=== PATIENT | male | born 1980 | race Hispanic/Latino ===

== ENCOUNTER 2024-09-23 10:24 | Emergency (ER) | payer SELFPAY ==
[2024-09-23 10:36] VITALS: BP 150/95; PULSE 110; RESP 16; TEMP 37.4; O2SAT 99
--- NOTE | 2024-09-23 10:53 | ED_ITS ---
HPI - Skin/Abscess/Foreign Bdy General Chief complaint: Extremity Injury, Lower Stated complaint: right knee red,swollen,painful Time Seen by Provider: 09/23/24 10:45 Source: patient Mode of arrival: ambulatory Limitations: no limitations History of Present Illness HPI narrative: Ruslan is a 44-year-old male patient presenting to the clinic today with complaints of right knee red, swollen, and painful. He reports symptoms started on Thursday with some right knee pain and have gradually gotten worse. He has felt feverish. Denies any known injury to the right knee. Heart rates 110 with a temperature of 37.4?. Blood pressure is 150/95. Related Data Home Medications Medication Instructions Recorded Confirmed No Home Medications 09/23/24 09/23/24 Allergies Allergy/AdvReac Type Severity Reaction Status Date / Time No Known Allergies Allergy Unverified 01/06/17 18:46 Review of Systems Review of Systems: Pertinent positives per HPI. Patient denies any rash, headache, visual changes, dizziness, cough, runny nose, sore throat, shortness of breath, chest pain, palpitations, nausea, vomiting, diarrhea, constipation, abdominal pain, or any urinary issues. PMFSH Comments At the time of my signature, I reviewed and agree with the nursing past medical, surgical, social, and family history. There is no relevant family history pertinent to the patient complaint. Exam Narrative: General: Well-developed, well nourished, in no apparent distress Head: Normocephalic, atraumatic. Cardio: Regular rate and rhythm, s1 and s2 normal, no murmur appreciated. Resp: Clear to auscultation bilaterally, no rhonchi, rales, wheezing or rubs. Integumentary: [place], warm, and dry, right knee swelling with erythema and tenderness with what appears to be an infected hair sore-redness and swelling extending to the medial right tib-fib and to the medial thigh with lymphatic streaking. Course Course Emergency Course: Portions of this record may have been created with voice recognition software. Level of Care: Express Care Visit Vital Signs Vital signs: Vital Signs Temperature 37.4 C 09/23/24 10:36 Pulse Rate 110 H 09/23/24 10:36 Respiratory Rate 16 09/23/24 10:36 Blood Pressure 150/95 H 09/23/24 10:36 Pulse Oximetry 99 09/23/24 10:36 Oxygen Delivery Room Air 09/23/24 10:36 Temperature 37.4 C 09/23/24 10:36 Pulse Rate 110 H 09/23/24 10:36 Respiratory Rate 16 09/23/24 10:36 Blood Pressure 150/95 H 09/23/24 10:36 Pulse Oximetry 99 09/23/24 10:36 Oxygen Delivery Room Air 09/23/24 10:36 Vital signs reviewed Transfer Transfered to: [facility] Transportation: Other (private car) Transfer rationale: Cellulitis to the right knee with lymphatic streaking-rule out septic joint Accepting physician: Dr. Hernandez Transfer comments: Private car MDM - Skin/Abscess/Foreign Bdy MDM Narrative Medical decision making narrative: At the time of visit patient is resting on the exam table. Plan: Recommend transfer to the ER for right knee cellulitis will rule out septic joint. Patient like to be transfer to [facility]. Spoke with Dr. Hernandez at [facility] and report was given for continuity of care and she accepts patient for transfer. Differential Diagnosis Differential diagnosis: Likely abscess of skin or subcutaneous tissue, cellulitis, insect bites, impetigo and contact dermatitis Discharge Plan Discharge Clinical Impression: Cellulitis of knee, right Cellulitis Qualifiers: Site of cellulitis: extremity Site of cellulitis of extremity: lower extremity Laterality: right Qualified Code(s): L03.115 - Cellulitis of right lower limb Patient Disposition: Acute Care Hospital Condition: Stable Instructions: Antibiotic Form Follow-up/Referrals: Nahomy,BC Rosales [Primary Care Provider] - Time of Disposition: 10:55 Quality NIHSS Nursing Documentation ED NIHSS nursing documentation: reviewed/agree
== END 2024-09-23 11:02 | disposition short-term general hospital (02) ==
PROVIDERS: Emergency Provider Nurse Practitioner Family; PCP Physician Assistant
DX: L03.115 Cellulitis of right lower limb (principal)
CPT/HCPCS: 99202; G0463

== ENCOUNTER 2025-01-24 08:05 | Emergency (ER) | payer SELFPAY ==
--- NOTE | 2025-01-24 08:08 | ED.URI ---
HPI - URI/Sore Throat General Chief Complaint: Upper Respiratory Infection Stated Complaint: bodyaches,fever,cough,chills Time Seen by Provider: 01/24/25 08:12 Source: patient, RN notes reviewed and old records reviewed Mode of arrival: ambulatory Limitations: no limitations History of Present Illness HPI Narrative: 34-year-old male presents to the [facility] with body aches, fever, chills symptoms started Thursday, 2 days ago Has taken ibuprofen Tamiflu NyQuil. Took ibuprofen approximately 3 hours ago. 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 Onset (ago): day(s) (2) Treatments prior to arrival: ibuprofen and cold medicine Related Data Home Medications ?Medication ?Instructions ?Recorded ?Confirmed ?Last Taken ?Type No Home Medications 09/23/24 09/23/24 Unknown History No Home Medications 09/23/24 01/24/25 Unknown History Allergies Allergy/AdvReac Type Severity Reaction Status Date / Time vancomycin Allergy Hives Verified 01/24/25 08:12 Review of Systems Review of Systems: All systems reviewed & are unremarkable except as noted in HPI and below Constitutional: Constitutional: Reports as per HPI, Reports body ache(s), Reports chills, Reports fatigue and Reports fever(s) ENT: Reports system reviewed and no additional complaints, except as documented Cardiovascular: Cardiovascular: Reports no additional cardiovascular complaints, Denies chest pain and Denies dyspnea Respiratory: Respiratory: Reports as per HPI, Denies chest congestion, Reports cough and Denies dyspnea Musculoskeletal: Musculoskeletal: Reports no additional musculoskeletal complaints Integumentary/Breasts: Skin/Breast: Reports system reviewed and no additional complaints, except as docu PMFSH Past Medical History Medical History No active medical problems Social History Social History Smoking status: Current every day smoker Alcohol intake: unknown Substance use: never Do You Feel Safe in your Home?: Yes Lack of Transportation: No Lack of Food: Never True Current Housing: I Have Housing Concerned About Future Housing: No Difficulty Paying Gas/Electric Bills: No Difficulty Paying for Meds: No Currently Unemployed: No Education: Grade School Difficulty w/ Childcare or Family Care: No Spiritual care concerns: No Comments At the time of my signature, I reviewed and agree with the nursing past medical, surgical, social, and family history. There is no relevant family history pertinent to the patient complaint. Exam Const: General: cooperative, no acute distress, well developed, alert, tired appearing, uncomfortable and well nourished Nutritional Appearance: well nourished Orientation/consciousness: patient oriented x3 Limitations: no limitations HENMT: Head: normal to inspection Ears: hearing grossly normal bilaterally, external ears normal, TM's normal bilaterally, EAC's normal, mastoids normal and no periauricular adenopathy Mouth: Yes Normal oral and palatal mucosa present, Yes lip normal, Yes tongue normal and Yes moist mucous membranes Throat: posterior oropharynx normal, uvula midline and no uvular edema Eyes: General: appearance normal, both eyes and all related structures Alignment and Position: alignment normal Neck: Neck: normal visual inspection, full ROM, no lymphadenopathy and no meningeal signs Chest: Chest palpation & inspection: normal inspection of the chest Resp: Effort & Inspection: normal respiratory effort, able to speak in complete sentences and Actively coughing dry Auscultation: clear to auscultation bilaterally, no crackles, no rales, no rhonchi and no wheezes Cardio: Rate: regular rate Skin: General skin exam: normal color and no rashes or lesions noted Neuro: General: patient oriented x3, gait normal, moves all extremities and no meningeal signs Cognition (Neuro): normal cognition Speech: normal speech Gait exam (Neuro): Normal gait present Extrem: General: normal to inspection, full ROM, capillary refill normal and normal gait Psych: Appearance: grossly normal and well kempt Mental Status: mental status grossly normal Speech and movement: Normal speech and movement present and Clear speech present Affect: normal affect Attitude: cooperative Course Course Level of Care: Express Care Visit Vital Signs Vital signs: Vital Signs Temperature 100.2 F H 01/24/25 08:13 Pulse Rate 116 H 01/24/25 08:13 Respiratory Rate 16 01/24/25 08:13 Blood Pressure 159/82 H 01/24/25 08:13 Pulse Oximetry 98 01/24/25 08:13 Oxygen Delivery Room Air 01/24/25 08:13 Temperature 100.2 F H 01/24/25 08:13 Pulse Rate 116 H 01/24/25 08:13 Respiratory Rate 16 01/24/25 08:13 Blood Pressure 159/82 H 01/24/25 08:13 Pulse Oximetry 98 01/24/25 08:13 Oxygen Delivery Room Air 01/24/25 08:13 Reviewed MDM - URI/Sore Throat MDM Narrative Medical decision making narrative: Patient sitting in exam room. Nontoxic, vitals are stable except blood pressure elevated, low-grade fever. COVID negative, flu A positive Patient is appropriate for outpatient treatment and follow-up Discharge instructions reviewed with patient, as well as provided in writing per nursing staff. The instructions also include specific and strict return/GO TO THE ER as well as f/u information. All questions have been answered, and the patient deny any further questions with discharge and discharge plan. Some parts of this dictation were generated by voice recognition software and may contain typographical and/or grammatical inaccuracies. Differential Diagnosis Differential diagnosis: Likely upper respiratory infection, otitis media, sinusitis, viral infection, influenza and pharyngitis Lab Data Labs: Lab Results 01/24/25 Range/Units 08:25 POC Influenza A Ag Positive (Negative) POC Influenza B Ag Negative (Negative) POC SARS CoV-2 Ag Negative (Negative) Critical Care Time Critical Care Time Critical Care Time: No Discharge Plan Discharge Clinical Impression: Influenza A Patient Disposition: Home, Self-Care Condition: Stable Instructions: Antibiotic Form, Influenza (ED) Additional Instructions: Today blood pressure was 159/82. It is recommended that you follow-up with primary care provider within 2 weeks to this checked Your rapid COVID test were negative Your rapid flu test was positive for influenza A Your symptoms are due to a viral illness, which is not treated with antibiotics. Typically viral infections last 7-10 days, can linger for couple of weeks. It is very important to treat your symptoms. Drink plenty of water, Gatorade, Pedialyte, ice pops or Jell-O. -Alternate Tylenol and Motrin per package directions for fever or pain. You can alternate every 4 hours -Antihistamine medication such as Zyrtec/Claritin/Elke during the day can help improve symptoms. -Use Flonase twice a day for 5 days then daily to help reduce the inflammation and dry up your sinuses. -You can also use Mucinex. Be sure to drink plenty of water with this medication at least 8 ounces with every dose and it is important to drink 8 to 10 glasses of water per day. Water is a natural decongestant -Eat and drink things that are easy to swallow, like tea or soup, or popsicles. -Oral rinses such as: Salt water gargles and/or may use topical anesthetic (eg. Chloraseptic spray) or lozenges to relieve dryness or throat pain). -Frequent hand washing or hand neighborhood conservation officer is one of the best ways to prevent spread of infection. -Using a vaporizer or humidifier at night will also help thin secretions and help with coughing up phlegm. -Follow up with primary care provider in 7-10 days if condition is not improving - For new or worsening symptoms go directly to the nearest ER Patient Language: Wolof Prescriptions: No Action No Home Medications No Home Medications Follow-up/Referrals: Nahomy,BC Rosales [Primary Care Provider] - 2 Weeks ([facility] blood pressure check, 159/82) Stand Alone Forms: Work/School Release IP Time of Disposition: 08:23
[2025-01-24 08:13] VITALS: BP 159/82; PULSE 116; RESP 16; TEMP 37.9; O2SAT 98
[2025-01-24 08:27] LABS: EDCOVIDSCREEN Negative (Negative); EDINFLUASCREEN Positive (Negative); EDINFLUBSCREEN Negative (Negative)
== END 2025-01-24 08:27 | disposition home or self-care (01) ==
PROVIDERS: Emergency Provider Nurse Practitioner; PCP Physician Assistant
DX: J10.1 Influenza due to other identified influenza virus with other respiratory manifestations (principal); F17.200 Nicotine dependence, unspecified, uncomplicated; Z20.822 Contact with and (suspected) exposure to COVID-19
CPT/HCPCS: 87426; 87804; 99212; G0463